=== PATIENT | male | born 1990 | race Caucasian/White ===

== ENCOUNTER 2017-11-07 00:46 | Inpatient (IN) ==
[~2017-11-07 00:46] MED LIST: HALOPERIDOL 5 MG/ML AMP ONE; MIDAZOLAM 10 MG/2 ML VIAL ONE
[2017-11-07] MEDS ORDERED: HALOPERIDOL 5 MG/ML AMP ONE (00:47)
[2017-11-07] MEDS ORDERED: MIDAZOLAM 10 MG/2 ML VIAL ONE (00:53)
[2017-11-07] MEDS ORDERED: SODIUM CHLORIDE 0.9% 2,000 ML IV STA (01:22)
[2017-11-07] MEDS ORDERED: SUCCINYLCHOLINE 200 MG/10 ML VIAL IV ONE (01:24)
[2017-11-07] MEDS ORDERED: ETOMIDATE 20 MG/10 ML VIAL IV STA (01:24)
[2017-11-07] MEDS ORDERED: ETOMIDATE 20 MG/10 ML VIAL IV ONE (01:30)
[2017-11-07] MEDS ORDERED: ROCURONIUM 100 MG/10 ML VIAL IV STA ×3 (02:08→05:30)
[2017-11-07] MEDS ORDERED: PROPOFOL 1,000 MG/100 ML BOTTLE IV ONE ×2 (02:10→05:25)
[2017-11-07] MEDS: PROPOFOL 1,000 MG/100 ML BOTTLE IV SCH ×10 (02:25→23:25)
[2017-11-07] MEDS ORDERED: ROCURONIUM 100 MG/10 ML VIAL IV ONE ×2 (02:39→05:25)
[2017-11-07 02:46] LABS: Basophils # 0.1 10*3/uL (0.0-0.2); Basophils % 0.7 % (0.0-0.8); Eosinophils % 0.4 % (0.00-10.9); Hemoglobin 15.1 GM/DL (14.0-18.0); Immature Granulocytes Absolute 0.11 #; Lymphocytes # 1.5 10*3/uL (1.4-4.0); Lymphocytes % 13.6 % (21.2-54.2); Mean Corpuscular HGB Conc 33.6 GM/DL (32-36); Mean Corpuscular Hemoglobin 29 PG (27-34); Mean Corpuscular Volume 87.5 FL (87-102); Mean Platelet Volume 8.8 FL (9.6-12.0); Monocytes # 0.9 10*3/uL (0.11-0.8); Monocytes % 7.6 % (1.7-12.7); Neutrophils # 8.6 10*3/uL (1.4-7.4); Neutrophils % 76.7 % (38.7-73.9); Platelet Count 375 T/CUMM (130-400); Red Blood Count 5.14 MC/CUMM (3.8-5.5); Red Cell Distribution Width 13.2 % (9.3-17.3); White Blood Count 11.2 T/CUMM (4-12)
[2017-11-07 02:55] LABS: Apearance,Urine CLEAR (Clear); Bacteria,Urine Few /HPF (Few); Bilirubin,Urine Negative (Negative); Blood, Urine Negative (Negative); Glucose,Urine (UA) Negative (Negative); Hyaline Casts,Urine 10 /LPF (0-3); Ketones,Urine Negative (Negative); Mucus,Urine Occasional /LPF (Occasional); Nitrite,Urine Negative (Negative); Protein,Urine 30 MG/DL; RBC,Urine 7 /HPF (0-4); Sperm,Urine Occasional /HPF (Negative); Urine Color Yellow (Yellow); Urine Specific Gravity 1.025 (1.001-1.035); Urine Urobilinogen < 2.0 EU/DL (0.2-1.0); WBC,Urine 2 /HPF (0-6)
[2017-11-07 02:56] LABS: PT Patient Result 10.5 SECS
[2017-11-07 03:04] LABS: Lactic Acid 1.6 MMOL/L (0.4-2.0)
[2017-11-07 03:05] LABS: Alanine Aminotransferase 57 U/L (16-61); Albumin 4.1 G/DL (3.4-5.0); Alkaline Phosphatase 112 U/L (45-117); Aspartate Amino Transferase 60 U/L (0-37); Blood Urea Nitrogen 30 MG/DL (7-18); Calcium 9.6 MG/DL (8.5-10.1); Glucose 112 MG/DL (74-106); Osmolality,Calculated 283.5 MOS/KG (273-304); Potassium 3.6 MMOL/L (3.5-5.1); Sodium 139 MMOL/L (136-145); Total Protein 8.7 G/DL (6.4-8.3)
[2017-11-07] MEDS ORDERED: VECURONIUM 10 MG VIAL IV STA ×3 (03:06→06:56)
[2017-11-07 03:07] LABS: Troponin I Only < 0.015 NG/ML (0.00-0.045)
[2017-11-07 03:22] LABS: Salicylate < 2.8 MG/DL (2.8-20)
[2017-11-07 03:25] LABS: Acetaminophen < 2.0 UG/ML (10-30)
[2017-11-07 03:39] LABS: Barbiturates Screen,Urine Positive (Negative); Benzodiazepines Screen,Urine Positive (Negative); Cannabinoid Screen,Urine Negative (Negative); Opiate Screen,Urine Positive (Negative); Phencyclidine Screen,Urine Negative (Negative)
[2017-11-07 03:51] LABS: ABG Base Excess -7.8 MMOL/L (-2.5-2.5); ABG HCO3 18.2 MMOL/L (20-26); ABG Oxygen Saturation 98.3 % (95-100); ABG PCO2 54.2 MM HG (35-48); ABG TCO2 18.9 MMOL/L (23-27); Allen Test Positive; Pt O2 Delivery Device Ventilator
[2017-11-07 03:54] LABS: ABG PH 7.201 (7.35-7.45)
[2017-11-07] MEDS ORDERED: VECURONIUM 10 MG VIAL IV ONE ×3 (04:07→06:48)
[2017-11-07] MEDS ORDERED: ONDANSETRON 4 MG/2 ML VIAL IV PRN (06:01)
[2017-11-07 06:14] LABS: ABG Base Excess -6.3 MMOL/L (-2.5-2.5); ABG HCO3 22.3 MMOL/L (20-26); ABG Oxygen Saturation 98.4 % (95-100); ABG PCO2 56.3 MM HG (35-48); ABG PH 7.215 (7.35-7.45); ABG PO2 155.2 MM HG (80-95)
[2017-11-07] MEDS ORDERED: PROPOFOL 1,000 MG/100 ML BOTTLE IV SCH (06:15)
[2017-11-07] MEDS ORDERED: MIDAZOLAM 2 MG/2 ML VIAL IV PRN ×2 (08:19→09:57)
[2017-11-07] MEDS: SODIUM CHLORIDE 0.9% 1,000 ML IV SCH ×4 (08:27→23:59)
[2017-11-07] MEDS: PANTOPRAZOLE 40 MG VIAL IV SCH (08:28)
[2017-11-07 11:01] LABS: Allen Test Positive; Pt O2 Delivery Device Ventilator
[2017-11-07 11:02] LABS: ABG Base Excess -3.5 MMOL/L (-2.5-2.5); ABG HCO3 21.5 MMOL/L (20-26); ABG Oxygen Saturation 99.5 % (95-100); ABG PCO2 36.2 MM HG (35-48); ABG PH 7.374 (7.35-7.45); ABG TCO2 18.4 MMOL/L (23-27)
[2017-11-07] MEDS ORDERED: FUROSEMIDE 40 MG/4 ML VIAL IV ONE (11:19)
[2017-11-07] MEDS: MIDAZOLAM 100 MG in SODIUM CHLORIDE 0.9% 80 ML IV SCH ×2 (12:42→22:54)
[2017-11-07] MEDS: NICOTINE 21 MG/24 HR PATCH TRANSDERM SCH (18:39)
[2017-11-07] MEDS: TOPIRAMATE 100 MG TABLET PO SCH (21:42)
[2017-11-07] MEDS: OLANZapine 5 MG TABLET PO SCH (21:43)
[2017-11-07] MEDS: GABAPENTIN 300 MG CAPSULE PO SCH (21:43)
[2017-11-07] MEDS: OXcarbazepine 300 MG TABLET PO SCH ×2 (21:50→21:51)
[2017-11-07] MEDS: METOPROLOL TARTRATE 25 MG TABLET PO SCH (21:59)
[2017-11-08] MEDS: PROPOFOL 1,000 MG/100 ML BOTTLE IV SCH ×15 (01:10→23:46)
[2017-11-08 03:27] LABS: ABG Base Excess -2.6 MMOL/L (-2.5-2.5); ABG HCO3 22.3 MMOL/L (20-26); ABG Oxygen Saturation 99.3 % (95-100); ABG PCO2 33.1 MM HG (35-48); ABG PH 7.413 (7.35-7.45); ABG TCO2 18.4 MMOL/L (23-27); Allen Test Positive; Pt O2 Delivery Device Ventilator
[2017-11-08 06:06] LABS: Basophils # 0.1 10*3/uL (0.0-0.2); Basophils % 0.6 % (0.0-0.8); Eosinophils # 0.4 10*3/uL (0.0-0.87); Eosinophils % 4.9 % (0.00-10.9); Hematocrit 37.7 VOL% (42.0-52.0); Hemoglobin 12.8 GM/DL (14.0-18.0); Immature Granulocytes % 0.5 %; Immature Granulocytes Absolute 0.04 #; Lymphocytes # 1.8 10*3/uL (1.4-4.0); Lymphocytes % 21.1 % (21.2-54.2); Mean Corpuscular Hemoglobin 30 PG (27-34); Mean Corpuscular Volume 87.1 FL (87-102); Monocytes # 1.1 10*3/uL (0.11-0.8); Monocytes % 13.1 % (1.7-12.7); Neutrophils % 59.8 % (38.7-73.9); Platelet Count 296 T/CUMM (130-400); Red Blood Count 4.33 MC/CUMM (3.8-5.5); Red Cell Distribution Width 13.2 % (9.3-17.3); White Blood Count 8.4 T/CUMM (4-12)
[2017-11-08 06:43] LABS: Albumin 2.9 G/DL (3.4-5.0); Bilirubin,Total 0.6 MG/DL (0.2-1.0); Calcium 8.2 MG/DL (8.5-10.1); Osmolality,Calculated 285.1 MOS/KG (273-304); Potassium 3.3 MMOL/L (3.5-5.1); Total Protein 6.3 G/DL (6.4-8.3)
[2017-11-08] MEDS: SODIUM CHLORIDE 0.9% 1,000 ML IV SCH ×5 (06:47→19:16)
[2017-11-08] MEDS: NICOTINE 21 MG/24 HR PATCH TRANSDERM SCH (08:12)
[2017-11-08] MEDS: PANTOPRAZOLE 40 MG VIAL IV SCH (08:13)
[2017-11-08] MEDS: OXcarbazepine 300 MG TABLET PO SCH ×4 (08:14→21:22)
[2017-11-08] MEDS: METOPROLOL TARTRATE 25 MG TABLET PO SCH ×2 (08:14→21:21)
[2017-11-08] MEDS: DULoxetine 30 MG CAPSULE PO SCH (08:15)
[2017-11-08] MEDS: LISINOPRIL 20 MG TABLET PO SCH (08:16)
[2017-11-08] MEDS ORDERED: Naltrexone Hcl [Naltrexone Hcl] 50 MG PO SCH (09:00)
[2017-11-08] MEDS: MIDAZOLAM 100 MG in SODIUM CHLORIDE 0.9% 80 ML IV SCH ×3 (09:03→17:18)
[2017-11-08 09:32] LABS: Apearance,Urine CLOUDY (Clear); Bacteria,Urine Occasional /HPF (Few); Bilirubin,Urine Negative (Negative); Blood, Urine Moderate mg/dL (Negative); Glucose,Urine (UA) Negative (Negative); Ketones,Urine 20 mg/dL (Negative); Mucus,Urine Occasional /LPF (Occasional); Nitrite,Urine Negative (Negative); Protein,Urine 100 MG/DL; RBC,Urine 533 /HPF (0-4); Uric Acid Crystals,Urine Many /HPF (<1); Urine Color Yellow (Yellow); Urine Specific Gravity 1.028 (1.001-1.035); Urine Urobilinogen < 2.0 EU/DL (0.2-1.0)
[2017-11-08] MEDS: GABAPENTIN 300 MG CAPSULE PO SCH (21:21)
[2017-11-08] MEDS: OLANZapine 5 MG TABLET PO SCH (21:22)
[2017-11-08] MEDS: TOPIRAMATE 100 MG TABLET PO SCH (21:22)
[2017-11-09] MEDS: SODIUM CHLORIDE 0.9% 1,000 ML IV SCH ×2 (01:03→06:01)
[2017-11-09] MEDS: MIDAZOLAM 100 MG in SODIUM CHLORIDE 0.9% 80 ML IV SCH ×3 (01:11→19:55)
[2017-11-09] MEDS: PROPOFOL 1,000 MG/100 ML BOTTLE IV SCH ×9 (01:11→22:40)
[2017-11-09 03:28] LABS: ABG HCO3 18.7 MMOL/L (20-26); ABG Oxygen Saturation 98.1 % (95-100); ABG PCO2 30.8 MM HG (35-48); ABG PH 7.401 (7.35-7.45); ABG PO2 113.8 MM HG (80-95); ABG TCO2 19.6 MMOL/L (23-27)
[2017-11-09] MEDS ORDERED: FUROSEMIDE 40 MG/4 ML VIAL IV ONE (05:30)
[2017-11-09 05:56] LABS: Calcium 7.9 MG/DL (8.5-10.1); Magnesium 2.1 MG/DL (1.8-2.4); Potassium 3.6 MMOL/L (3.5-5.1)
[2017-11-09] MEDS: LISINOPRIL 20 MG TABLET PO SCH (08:16)
[2017-11-09] MEDS: NICOTINE 21 MG/24 HR PATCH TRANSDERM SCH (08:16)
[2017-11-09] MEDS: PANTOPRAZOLE 40 MG VIAL IV SCH (08:16)
[2017-11-09] MEDS: METOPROLOL TARTRATE 25 MG TABLET PO SCH ×2 (08:17→21:58)
[2017-11-09] MEDS: DULoxetine 30 MG CAPSULE PO SCH (08:17)
[2017-11-09] MEDS: OXcarbazepine 300 MG TABLET PO SCH ×4 (08:19→21:59)
[2017-11-09] MEDS ORDERED: VANCOMYCIN INJ 1,000 MG in SODIUM CHLORIDE 0.9% 250 ML IV SCH (16:30)
[2017-11-09] MEDS: ACETAMINOPHEN 325 MG/10.15 ML UDCUP PO PRN (17:01)
[2017-11-09] MEDS: MEROPENEM 1,000 MG in SYRINGE 1 EACH IV SCH (18:15)
[2017-11-09] MEDS: VANCOMYCIN INJ 2,000 MG in SODIUM CHLORIDE 0.9% 500 ML IV SCH (18:25)
[2017-11-09 18:29] LABS: Basophils % 0.3 % (0.0-0.8); Eosinophils # 0.1 10*3/uL (0.0-0.87); Eosinophils % 0.4 % (0.00-10.9); Hematocrit 35.9 VOL% (42.0-52.0); Hemoglobin 12.5 GM/DL (14.0-18.0); Immature Granulocytes % 0.4 %; Immature Granulocytes Absolute 0.06 #; Lymphocytes # 1.1 10*3/uL (1.4-4.0); Lymphocytes % 8.2 % (21.2-54.2); Mean Corpuscular HGB Conc 34.8 GM/DL (32-36); Mean Corpuscular Hemoglobin 30 PG (27-34); Mean Corpuscular Volume 85.1 FL (87-102); Mean Platelet Volume 9.1 FL (9.6-12.0); Monocytes # 1.2 10*3/uL (0.11-0.8); Monocytes % 9.1 % (1.7-12.7); Neutrophils # 11.1 10*3/uL (1.4-7.4); Neutrophils % 81.6 % (38.7-73.9); Platelet Count 272 T/CUMM (130-400); Red Blood Count 4.22 MC/CUMM (3.8-5.5); Red Cell Distribution Width 12.7 % (9.3-17.3); White Blood Count 13.6 T/CUMM (4-12)
[2017-11-09 18:45] LABS: Apearance,Urine CLOUDY (Clear); Bilirubin,Urine Negative (Negative); Blood, Urine Negative (Negative); Glucose,Urine (UA) Negative (Negative); Ketones,Urine 80 mg/dL (Negative); Mucus,Urine Occasional /LPF (Occasional); Nitrite,Urine Negative (Negative); Protein,Urine 30 MG/DL; Uric Acid Crystals,Urine Many /HPF (<1); Urine Specific Gravity 1.026 (1.001-1.035); Urine Urobilinogen < 2.0 EU/DL (0.2-1.0)
[2017-11-09 18:46] LABS: Urine Color Amber (Yellow)
[2017-11-09] MEDS: OLANZapine 5 MG TABLET PO SCH (21:58)
[2017-11-09] MEDS: TOPIRAMATE 100 MG TABLET PO SCH (21:59)
[2017-11-09] MEDS: GABAPENTIN 300 MG CAPSULE PO SCH (21:59)
[2017-11-10] MEDS: PROPOFOL 1,000 MG/100 ML BOTTLE IV SCH ×11 (01:35→23:05)
[2017-11-10] MEDS: MEROPENEM 1,000 MG in SYRINGE 1 EACH IV SCH ×3 (01:40→17:43)
[2017-11-10] MEDS: SODIUM CHLORIDE 0.9% 1,000 ML IV SCH ×4 (05:14→21:49)
[2017-11-10] MEDS: MIDAZOLAM 100 MG in SODIUM CHLORIDE 0.9% 80 ML IV SCH ×2 (05:15→11:42)
[2017-11-10] MEDS: VANCOMYCIN INJ 2,000 MG in SODIUM CHLORIDE 0.9% 500 ML IV SCH ×2 (06:38→17:43)
[2017-11-10] MEDS: OXcarbazepine 300 MG TABLET PO SCH ×4 (08:46→21:40)
[2017-11-10] MEDS: NICOTINE 21 MG/24 HR PATCH TRANSDERM SCH (08:47)
[2017-11-10] MEDS: DULoxetine 30 MG CAPSULE PO SCH (08:47)
[2017-11-10] MEDS: METOPROLOL TARTRATE 25 MG TABLET PO SCH ×2 (08:47→21:39)
[2017-11-10] MEDS: LISINOPRIL 20 MG TABLET PO SCH (08:47)
[2017-11-10] MEDS: PANTOPRAZOLE 40 MG VIAL IV SCH (08:48)
[2017-11-10] MEDS: GABAPENTIN 300 MG CAPSULE PO SCH (21:39)
[2017-11-10] MEDS: TOPIRAMATE 100 MG TABLET PO SCH (21:39)
[2017-11-10] MEDS: OLANZapine 5 MG TABLET PO SCH (21:39)
[2017-11-10] MEDS: ACETAMINOPHEN 325 MG/10.15 ML UDCUP PO PRN (22:42)
[2017-11-11] MEDS: PROPOFOL 1,000 MG/100 ML BOTTLE IV SCH ×7 (00:42→08:47)
[2017-11-11] MEDS: MEROPENEM 1,000 MG in SYRINGE 1 EACH IV SCH ×3 (01:30→16:20)
[2017-11-11] MEDS: SODIUM CHLORIDE 0.9% 1,000 ML IV SCH ×4 (02:32→21:40)
[2017-11-11 03:36] LABS: ABG Base Excess -2.6 MMOL/L (-2.5-2.5); ABG HCO3 22.3 MMOL/L (20-26); ABG Oxygen Saturation 99.3 % (95-100); ABG PH 7.406 (7.35-7.45); ABG TCO2 18.7 MMOL/L (23-27)
[2017-11-11 05:02] LABS: Basophils # 0.1 10*3/uL (0.0-0.2); Basophils % 0.5 % (0.0-0.8); Eosinophils # 0.6 10*3/uL (0.0-0.87); Eosinophils % 4.6 % (0.00-10.9); Hematocrit 37.8 VOL% (42.0-52.0); Hemoglobin 12.9 GM/DL (14.0-18.0); Immature Granulocytes % 1.3 %; Immature Granulocytes Absolute 0.18 #; Lymphocytes # 1.2 10*3/uL (1.4-4.0); Mean Corpuscular HGB Conc 34.1 GM/DL (32-36); Mean Corpuscular Hemoglobin 29 PG (27-34); Mean Corpuscular Volume 84.9 FL (87-102); Mean Platelet Volume 9.5 FL (9.6-12.0); Monocytes # 1.2 10*3/uL (0.11-0.8); Monocytes % 8.5 % (1.7-12.7); Neutrophils # 10.3 10*3/uL (1.4-7.4); Neutrophils % 76.1 % (38.7-73.9); Platelet Count 293 T/CUMM (130-400); Red Blood Count 4.45 MC/CUMM (3.8-5.5); Red Cell Distribution Width 12.9 % (9.3-17.3); White Blood Count 13.6 T/CUMM (4-12)
[2017-11-11 05:33] LABS: Albumin 2.5 G/DL (3.4-5.0); Bilirubin,Total 0.5 MG/DL (0.2-1.0); Calcium 8.5 MG/DL (8.5-10.1); Magnesium 2.3 MG/DL (1.8-2.4); Phosphorous 1.5 MG/DL (2.5-4.9); Potassium 3.8 MMOL/L (3.5-5.1); Total Protein 6.6 G/DL (6.4-8.3)
[2017-11-11] MEDS: VANCOMYCIN INJ 2,000 MG in SODIUM CHLORIDE 0.9% 500 ML IV SCH ×2 (06:19→19:09)
[2017-11-11] MEDS ORDERED: MAGNESIUM SULF RIDER 2 GM in PREMIX 1 EACH IV PRN (07:29)
[2017-11-11] MEDS ORDERED: MAGNESIUM SULF RIDER 4 GM in PREMIX 1 EACH IV PRN (07:29)
[2017-11-11] MEDS: OXcarbazepine 300 MG TABLET PO SCH ×4 (09:41→21:21)
[2017-11-11] MEDS: DULoxetine 30 MG CAPSULE PO SCH (09:42)
[2017-11-11] MEDS: METOPROLOL TARTRATE 25 MG TABLET PO SCH ×2 (09:42→21:27)
[2017-11-11] MEDS: LISINOPRIL 20 MG TABLET PO SCH (09:42)
[2017-11-11] MEDS: ACETAMINOPHEN 325 MG/10.15 ML UDCUP PO PRN (09:42)
[2017-11-11] MEDS: PANTOPRAZOLE 40 MG VIAL IV SCH (09:42)
[2017-11-11] MEDS: NICOTINE 21 MG/24 HR PATCH TRANSDERM SCH (09:43)
[2017-11-11] MEDS: MIDAZOLAM 100 MG in SODIUM CHLORIDE 0.9% 80 ML IV SCH (11:36)
[2017-11-11] MEDS ORDERED: HALOPERIDOL 5 MG/ML AMP IV PRN ×2 (11:45→18:12)
[2017-11-11] MEDS ORDERED: ACETAMINOPHEN 325 MG TABLET PO PRN (15:55)
[2017-11-11] MEDS ORDERED: HALOPERIDOL 5 MG/ML AMP IM PRN (18:06)
[2017-11-11] MEDS ORDERED: VANCOMYCIN INJ 2,500 MG in SODIUM CHLORIDE 0.9% 500 ML IV ONE (20:00)
[2017-11-11] MEDS ORDERED: SODIUM PHOSPHATE INJ 30 MMOL in SODIUM CHLORIDE 0.9% 250 ML IV ONE (20:00)
[2017-11-11] MEDS: TOPIRAMATE 100 MG TABLET PO SCH (21:20)
[2017-11-11] MEDS: OLANZapine 5 MG TABLET PO SCH (21:22)
[2017-11-11] MEDS: GABAPENTIN 300 MG CAPSULE PO SCH (21:22)
[2017-11-12] MEDS: diphenhydrAMINE 50 MG/1 ML VIAL IV SCH ×2 (00:56→07:12)
[2017-11-12] MEDS: MEROPENEM 1,000 MG in SYRINGE 1 EACH IV SCH ×3 (01:13→17:17)
[2017-11-12] MEDS: SODIUM CHLORIDE 0.9% 1,000 ML IV SCH (03:56)
[2017-11-12] MEDS: VANCOMYCIN INJ 2,000 MG in SODIUM CHLORIDE 0.9% 500 ML IV SCH ×3 (03:57→19:40)
[2017-11-12] MEDS: diphenhydrAMINE 50 MG/1 ML VIAL IV PRN ×3 (07:10→21:07)
[2017-11-12] MEDS: METOPROLOL TARTRATE 25 MG TABLET PO SCH ×2 (08:40→21:08)
[2017-11-12] MEDS: LISINOPRIL 20 MG TABLET PO SCH (08:40)
[2017-11-12] MEDS: NICOTINE 21 MG/24 HR PATCH TRANSDERM SCH (08:41)
[2017-11-12] MEDS: DULoxetine 30 MG CAPSULE PO SCH (08:41)
[2017-11-12] MEDS: PANTOPRAZOLE 40 MG VIAL IV SCH (08:41)
[2017-11-12] MEDS: OXcarbazepine 300 MG TABLET PO SCH ×4 (08:41→21:08)
[2017-11-12] MEDS: OLANZapine 5 MG TABLET PO SCH (21:07)
[2017-11-12] MEDS: TOPIRAMATE 100 MG TABLET PO SCH (21:08)
[2017-11-12] MEDS: GABAPENTIN 300 MG CAPSULE PO SCH (21:08)
[2017-11-13] MEDS: MEROPENEM 1,000 MG in SYRINGE 1 EACH IV SCH (00:35)
[2017-11-13] MEDS: VANCOMYCIN INJ 2,000 MG in SODIUM CHLORIDE 0.9% 500 ML IV SCH (02:26)
[2017-11-13 05:51] LABS: Basophils # 0.1 10*3/uL (0.0-0.2); Basophils % 0.9 % (0.0-0.8); Eosinophils # 0.5 10*3/uL (0.0-0.87); Eosinophils % 4.9 % (0.00-10.9); Hematocrit 33.7 VOL% (42.0-52.0); Hemoglobin 11.7 GM/DL (14.0-18.0); Immature Granulocytes % 3.1 %; Immature Granulocytes Absolute 0.31 #; Lymphocytes # 1.5 10*3/uL (1.4-4.0); Mean Corpuscular HGB Conc 34.7 GM/DL (32-36); Mean Corpuscular Hemoglobin 29 PG (27-34); Mean Corpuscular Volume 84.3 FL (87-102); Mean Platelet Volume 9.4 FL (9.6-12.0); Monocytes # 1.2 10*3/uL (0.11-0.8); Monocytes % 11.5 % (1.7-12.7); Neutrophils # 6.5 10*3/uL (1.4-7.4); Neutrophils % 64.6 % (38.7-73.9); Platelet Count 325 T/CUMM (130-400); Red Cell Distribution Width 12.5 % (9.3-17.3)
[2017-11-13 06:20] LABS: Albumin 2.6 G/DL (3.4-5.0); Bilirubin,Total 0.7 MG/DL (0.2-1.0); Osmolality,Calculated 277.4 MOS/KG (273-304); Phosphorous 2.4 MG/DL (2.5-4.9); Total Protein 6.2 G/DL (6.4-8.3)
[2017-11-13] MEDS: DULoxetine 30 MG CAPSULE PO SCH (10:33)
[2017-11-13] MEDS: OXcarbazepine 300 MG TABLET PO SCH ×2 (10:34→10:35)
[2017-11-13] MEDS: LISINOPRIL 20 MG TABLET PO SCH (10:34)
[2017-11-13] MEDS: METOPROLOL TARTRATE 25 MG TABLET PO SCH (10:35)
[2017-11-13] MEDS: PANTOPRAZOLE 40 MG VIAL IV SCH (10:36)
[2017-11-13] MEDS: NICOTINE 21 MG/24 HR PATCH TRANSDERM SCH (10:36)
[2017-11-13 11:39] VITALS: BP 159/98
[2017-11-13] MEDS ORDERED: MINOCYCLINE 100 MG CAPSULE PO SCH (21:00)
== END 2017-11-13 11:30 | disposition home or self-care (01) | DRG 918 ==
LOC: EDBD → N.ED 00:46 → N.EDINP 05:32 → N.ICU 06:22 → N.3E 11-12 20:33
PROVIDERS: ADMIT Internal Medicine Infectious Disease; ATTEND Internal Medicine Infectious Disease